=== PATIENT | female | born 1940 | race Hispanic/Latino ===

== ENCOUNTER 2018-09-28 10:56 | Emergency (ER) | payer MEDICARE ==
[2018-09-28 10:57] VITALS: BMI 28.3
[2018-09-28 11:06] VITALS: RESP 18
--- NOTE | 2018-09-28 11:43 | ED PDOC ---
Arrival/HPI - General Chief Complaint: Upper Extremity Problem/Injury Time Seen by Provider: 09/28/18 11:17 Historian: Patient - History of Present Illness Narrative History of Present Illness (Text): 09/28/18 12:45 78 y/o female with PMH of diabetes, CHF, GERD presents to the ED c/o left shoulder and left wrist pain s/p witnessed mechanical fall that occurred this morning approx 2 hours INSEAMER. Pt was in the kitchen of her home with her when she tripped and fell on her left side. Denies headstrike or LOC. Pt takes one baby aspirin daily but is otherwise not on any blood thinners. Pt took 2 tabs advil INSEAMER. Denies numbness, weakness, paresthesias, vision changes, headache, neck pain, back pain, dizziness, nausea, vomiting, or any other associated symptoms. Past Medical History - Provider Review Nursing Documentation Reviewed: Yes - Past History Past History: No Previous - Infectious Disease Hx of Infectious Diseases: None - Tetanus Immunization Tetanus Immunization: Unknown - Reproductive Menopause: No - Cardiac Hx Congestive Heart Failure: Yes Hx Hypertension: Yes Hx Pacemaker: No Other/Comment: open heart [address] [facility] - Pulmonary Hx Respiratory Disorders: Yes Hx Chronic Obstructive Pulmonary Disease (COPD): Yes Hx Pneumonia: Yes - Neurological Hx Paralysis: No - HEENT Hx HEENT Disorder: (eyeglasses) Hx Cataracts: Yes (right eye sx) - Endocrine/Metabolic Hx Endocrine Disorders: Yes - Hematological/Oncological Hx 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) Hx Chemotherapy: No (no chemo no radiation) - Integumentary Hx Dermatological Disorder: Yes Other/Comment: multiple moles to face and chest - Musculoskeletal/Rheumatological Hx Falls: No - Gastrointestinal Hx Gastrointestinal Disorders: Yes Hx Colostomy: Yes (2012 reversed 2013 with hernia repair) Hx Diverticulitis: Yes - Genitourinary/Gynecological Hx Genitourinary Disorders: No - Psychiatric Hx Emotional Abuse: No Hx Physical Abuse: No Hx Substance Use: No - Surgical History Hx Appendectomy: Yes Hx Cardiac Catheterization: Yes Hx Coronary Stent: Yes (st [place] x1) Hx Hysterectomy: Yes (about 6 yrs ago) Other/Comment: left breast lumpectomy benign, pylonidal cyst, d&c, colon resection, colostomy 2012 due to diverticulitis, colostomy reversal 4 months later in 2014 - Anesthesia Hx Anesthesia: No Hx Anesthesia Reactions: No Hx Malignant Hyperthermia: No - Suicidal Assessment Feels Threatened In Home Enviroment: No Family/Social History - Physician Review Nursing Documentation Reviewed: Yes Family/Social History: No Known Family HX Smoking Status: Current Some Days Smoker Hx Alcohol Use: No Hx Substance Use: No Hx Substance Use Treatment: No Allergies/Home Meds Allergies/Adverse Reactions: Allergies No Known Allergies Allergy (Verified 07/26/16 10:05) Home Medications: Home Meds Medication Instructions Recorded Confirmed Calcium Carbonate/Vitamin D3 1 each PO BID 07/26/16 07/26/16 [Caltrate 600 + D Tablet] Fluticasone/Salmeterol 250/50 2 puff IH BID 07/26/16 07/26/16 [Advair Diskus] Furosemide [Lasix] 20 mg PO DAILY 07/26/16 07/26/16 Glipizide [Glipizide Xl] 5 mg PO DAILY 07/26/16 07/26/16 Metoprolol Succinate 50 mg PO DAILY 07/26/16 07/26/16 Multivit-Min/FA/Lycopen/Lutein 1 each PO DAILY 07/26/16 07/26/16 [Centrum Silver Tablet] Omeprazole 20 mg PO DAILY 07/26/16 07/26/16 Potassium Chloride [Klor-Con M20] 20 meq PO DAILY 07/26/16 07/26/16 amLODIPine [Norvasc] 5 mg PO DAILY 07/26/16 07/26/16 metFORMIN [glucOPHAGE] 500 mg PO BID 07/26/16 09/28/18 Insulin Glargine,Hum.rec.anlog 10 09/28/18 [Basaglar Kwikpen U-100] Linagliptin [Tradjenta] 09/28/18 Review of Systems - Review of Systems Constitutional: Normal. absent: Fevers Eyes: Normal. absent: Vision Changes ENT: Normal. absent: Epistaxis Respiratory: Normal. absent: SOB, Cough Cardiovascular: Normal. absent: Chest Pain, Palpitations, Syncope Gastrointestinal: Normal. absent: Abdominal Pain, Nausea, Vomiting Musculoskeletal: Other (left shoulder and wrist pain) Skin: Normal. absent: Rash, Laceration, Abscess Neurological: Normal. absent: Headache, Dizziness Physical Exam Vital Signs Reviewed: Yes Vital Signs Temp Pulse Resp BP Pulse Ox 09/28/18 11:02 97.8 F 80 18 153/78 H 94 L 09/28/18 10:57 97.8 F 94 H 20 153/78 H 80 L Temperature: Afebrile Blood Pressure: Normal Pulse: Regular Respiratory Rate: Normal Appearance: Positive for: Well-Appearing, Non-Toxic, Comfortable Pain Distress: None Mental Status: Positive for: Alert and Oriented X 3 - Systems Exam Head: Present: Atraumatic, Normocephalic Pupils: Present: PERRL Extroacular Muscles: Present: EOMI Conjunctiva: Present: Normal Mouth: Present: Moist Mucous Membranes Neck: Present: Normal Range of Motion. No: Meningeal Signs, MIDLINE TENDERNESS, Paraspinal Tenderness Respiratory/Chest: Present: Clear to Auscultation, Good Air Exchange. No: Respiratory Distress, Accessory Muscle Use Cardiovascular: Present: Regular Rate and Rhythm, Normal S1, S2, Peripheal Pulses Present Abdomen: No: Tenderness Back: Present: Normal Inspection. No: CVA Tenderness, Midline Tenderness, Paraspinal Tenderness Upper Extremity: Present: Normal Inspection, NORMAL PULSES, Tenderness (left anterior shoulder), Neurovascularly Intact, Capillary Refill < 2s. No: Cyanosis, Edema, Normal ROM (decreased at left shoulder), Swelling, Deformity Lower Extremity: Present: Normal Inspection, NORMAL PULSES, Normal ROM, Neurovascularly Intact, Capillary Refill < 2 s. No: Edema, Temperature Abnormalties Neurological: Present: GCS=15, CN II-XII Intact, Speech Normal, Motor Func Grossly Intact, Normal Sensory Function, Gait Normal Skin: Present: Warm, Dry, Normal Color. No: Rashes Psychiatric: Present: Alert, Oriented x 3, Normal Insight, Normal Concentration, Normal Affect, Normal Mood Medical Decision Making ED Course and Treatment: Initial Plan: * CT Head * CT Cervical Spine * XR Left Shoulder * XR Left Wrist * Tylenol 11:34 Repeat pulse ox is 94. Patient is well appearing in NAD. 12:30 Shoulder XR shows comminuted humeral head fracture and non displaced humeral neck fracture 12:43 Dr. Epstein called for orthopedic consult. 12:[address] Epstein who states he will come to ED to evaluate patient. CT imaging negative for fracture 13:30 Dr. Epstein reviewed diagnostic imaging and evaluated/examined patient at bedside. Pt placed in collar and cuff sling by Dr. Epstein and advised to followup in his office in 7-10 days from the injury for followup. States patient can be safely discharged home. Pt comfortable with discharge home. Advised ibuprofen for pain with percocet for severe pain episodes. Educated on side effects of narcotic medications including fall risk and respiratory depression. Pt verbalizes understanding, states she will followup as instructed. Diagnostic testing results and plan of care discussed with patient. Strict instructions given regarding prescription use, importance of followup, and signs/symptoms to return to ER including intractable pain, numbness, weakness, paresthesias, or any other new/worsening symptoms. Pt verbalized understanding of discussion. Patient is A&Ox3, ambulating with steady gait, with vital signs stable for discharge. - RAD Interpretation Narrative RAD Interpretations (Text): 09/28/18 12:18 Left Shoulder XR: FINDINGS: BONES: There is nondisplaced fracture of the greater tuberosity of the left humerus. There is a nondisplaced transverse humeral neck fracture. It is likely that there is a more comminuted humeral head fracture than is evident from this plain radiographic examination alone. JOINTS: Normal. Glenohumeral and acromioclavicular joints preserved. No osteoarthritis. SOFT TISSUES: Normal. OTHER FINDINGS: None. IMPRESSION: Comminuted humeral head fracture with transverse nondisplaced humeral neck fracture. Left Wrist XR: FINDINGS: BONES: Normal. No fracture. JOINTS: Normal. No dislocation. SOFT TISSUES: Normal. OTHER FINDINGS: None. IMPRESSION: Normal left wrist radiographs. 12:[address]: FINDINGS: HEMORRHAGE: No intracranial hemorrhage. BRAIN: No mass effect or edema. Minimal diffuse age-appropriate cerebral atrophy. Mild chronic periventricular white matter ischemic change. Small old lacunar infarct head of left caudate nucleus. No evidence of acute infarct. VENTRICLES: Unremarkable. No hydrocephalus. CALVARIUM: Unremarkable. PARANASAL SINUSES: Minimal chronic paranasal sinusitis. MASTOID AIR CELLS: Unremarkable as visualized. No inflammatory changes. OTHER FINDINGS: None. IMPRESSION: No intracranial mass, hemorrhage or evidence of acute infarct. Mild age related atrophy and chronic white matter ischemic change. 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 Cervical Spine CT: FINDINGS: VERTEBRAE: The vertebral bodies are maintained in height. Normal alignment is maintained. The atlantoaxial articulation and odontoid process are intact. DISCS/SPINAL CANAL/NEURAL FORAMINA: Narrowing of the C6-7 intervertebral disc space consistent with degenerative disc disease. There is also narrowing of the C3-4 disc space consistent with degenerative disc disease. The remaining intervertebral disc spaces are maintained in height. PARASPINAL SOFT TISSUES: Unremarkable. OTHER FINDINGS: None. IMPRESSION: No fracture/dislocation. Degenerative disc disease C3-4 and C6-7. Otherwise unremarkable. 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 Ulcer: No History Surgical Site Infection Following: None - Disposition Have Diagnosis and Disposition been Completed?: Yes Diagnosis: Humeral head fracture, Humeral shaft fracture Disposition: HOME/ ROUTINE Disposition Time: 13:45 Patient Plan: Discharge Condition: STABLE Discharge Instructions (ExitCare): Shoulder Fracture (DC) Additional Instructions: Call Dr. Epstein Sunday, appointment to be made for 7-10 days from injury Tylenol or advil as needed for pain Percocet only as needed for severe pain Followup with Dr. Ontiveros within 2 days Return to ER with any new/worsening symptoms Prescriptions: oxyCODONE/Acetaminophen [Percocet 5/325 mg Tab] 1 tab PO Q6 #6 tab Referrals: Matt Ontiveros MD [Primary Care Provider] - Follow up with primary Laureano Epstein DO [Staff Provider] - Follow up with primary Forms: [facility] (Senegalese), WORK NOTE
--- NOTE | 2018-09-28 12:06 | RAD ---
Date of service: 09/28/2018 PROCEDURE: Left Wrist Radiographs. HISTORY: fall, left wrist pain COMPARISON: None. TECHNIQUE: 4 views obtained. FINDINGS: BONES: Normal. No fracture. JOINTS: Normal. No dislocation. SOFT TISSUES: Normal. OTHER FINDINGS: None. IMPRESSION: Normal left wrist radiographs.
--- NOTE | 2018-09-28 12:17 | RAD ---
Date of service: 09/28/2018 PROCEDURE: Radiographs of the Left Shoulder HISTORY: fall, left shoulder pain COMPARISON: No prior. TECHNIQUE: 3 views obtained. FINDINGS: BONES: There is nondisplaced fracture of the greater tuberosity of the left humerus. There is a nondisplaced transverse humeral neck fracture. It is likely that there is a more comminuted humeral head fracture than is evident from this plain radiographic examination alone. JOINTS: Normal. Glenohumeral and acromioclavicular joints preserved. No osteoarthritis. SOFT TISSUES: Normal. OTHER FINDINGS: None. IMPRESSION: Comminuted humeral head fracture with transverse nondisplaced humeral neck fracture.
--- NOTE | 2018-09-28 12:42 | CT ---
Date of service: 09/28/2018 PROCEDURE: CT HEAD WITHOUT CONTRAST. HISTORY: headache COMPARISON: 07/17/2016 TECHNIQUE: Axial computed tomography images were obtained through the head/brain without intravenous contrast. Radiation dose: Total exam DLP = 849.53 mGy-cm. This CT exam was performed using one or more of the following dose reduction techniques: Automated exposure control, adjustment of the mA and/or kV according to patient size, and/or use of iterative reconstruction technique. FINDINGS: HEMORRHAGE: No intracranial hemorrhage. BRAIN: No mass effect or edema. Minimal diffuse age-appropriate cerebral atrophy. Mild chronic periventricular white matter ischemic change. Small old lacunar infarct head of left caudate nucleus. No evidence of acute infarct. VENTRICLES: Unremarkable. No hydrocephalus. CALVARIUM: Unremarkable. PARANASAL SINUSES: Minimal chronic paranasal sinusitis. MASTOID AIR CELLS: Unremarkable as visualized. No inflammatory changes. OTHER FINDINGS: None. IMPRESSION: No intracranial mass, hemorrhage or evidence of acute infarct. Mild age related atrophy and chronic white matter ischemic change. 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
--- NOTE | 2018-09-28 12:49 | CT ---
Date of service: 09/28/2018 PROCEDURE: CT Cervical Spine without contrast HISTORY: neck pain COMPARISON: None available. TECHNIQUE: Axial computed tomography images were obtained of the cervical spine without the use of intravenous contrast. Coronal and sagittal reformatted images were created and reviewed. Radiation dose: Total exam DLP = 380.53 mGy-cm. This CT exam was performed using one or more of the following dose reduction techniques: Automated exposure control, adjustment of the mA and/or kV according to patient size, and/or use of iterative reconstruction technique. FINDINGS: VERTEBRAE: The vertebral bodies are maintained in height. Normal alignment is maintained. The atlantoaxial articulation and odontoid process are intact. DISCS/SPINAL CANAL/NEURAL FORAMINA: Narrowing of the C6-7 intervertebral disc space consistent with degenerative disc disease. There is also narrowing of the C3-4 disc space consistent with degenerative disc disease. The remaining intervertebral disc spaces are maintained in height. PARASPINAL SOFT TISSUES: Unremarkable. OTHER FINDINGS: None. IMPRESSION: No fracture/dislocation. Degenerative disc disease C3-4 and C6-7. Otherwise unremarkable.
[2018-09-28 14:10] VITALS: BP 130/67; PULSE 84; TEMP 98; O2SAT 98
--- NOTE | 2018-09-30 08:41 | CON ---
DATE: 09/28/2018 EMERGENCY ROOM ORTHOPEDIC CONSULT REPORT HISTORY OF PRESENT ILLNESS: The patient is, Ms. Annelise Fairbanks, a 78-year-old female, with history of falling and injuring left shoulder, non-dominant side, and x-rays in the emergency room showed a minimally displaced surgical neck fracture with greater tuberosity involvement of the left proximal humerus at the surgical neck too.there is no ecchymosis today, but there is swelling and the family is quite involved. I told them to keep her in a collar in a comfort which I made for her from the emergency room supplies. I will see in the office in a week or 10 days to give her a more comfortable collar and a cuff and other instructions for this kind of fracture, to sleep in a recliner so the left arm be pain free without touching the mattress or the chair and she states the recliner will be a lot easier to tolerate. In six weeks, the fracture will be healed, but every week or two that we see her, the healing will start take in place and the more healing occurs she will have much less pain, and then when it is more stable and more healing, we could start range of motion in 3-4 weeks. FINAL DIAGNOSIS: Comminuted minimally displaced fracture, left proximal humerus, 3 part at the surgical neck, greater tuberosity. Treatment is collar and a cuff, sleep, sitting up and no weight and no range of motion on that right shoulder. She is to come to the office in about a week or 10 days so I could reevaluate her and fit her with a better collar and a cuff. Laureano Epstein DO ACE
== END 2018-09-28 14:10 | disposition home or self-care (01) ==
LOC: ED 10:56
DX: S42.292A Other displaced fracture of upper end of left humerus, initial encounter for closed fracture (principal); W01.0XXA Fall on same level from slipping, tripping and stumbling without subsequent striking against object, initial encounter; Y92.000 Kitchen of unspecified non-institutional (private) residence as the place of occurrence of the external cause; E11.9 Type 2 diabetes mellitus without complications; I50.9 Heart failure, unspecified; I10 Essential (primary) hypertension